=== PATIENT | male | born 1975 | race Caucasian/White ===

== ENCOUNTER 2020-01-04 15:04 | Outpatient (CLI) | payer OTHER, SELFPAY ==
--- NOTE | ~2020-01-04 | MR_ITS ---
EXAMINATION: MR shoulder LT wo con DATE: 01/04/2020 16:11 INDICATION: Left shoulder pain TECHNIQUE: Magnetic resonance imaging (MRI) of the left shoulder was performed without intravenous co ntrast. Sequences included axial PD-weighted FS FSE, coronal oblique PD-weighted FS FSE, coronal obli que T2-weighted FS FSE, sagittal PD-weighted FS FSE, and sagittal T1-weighted SE. COMPARISON: None. FINDINGS: Coracoacromial arch: The acromion undersurface is curved in morphology (type II). The coracoacromial ligament is normal. M oderate acromioclavicular osteoarthritis. Rotator cuff: Mild supraspinatus, infraspinatus and subscapularis tendinopathy without discrete tears. The teres mi nor tendon is normal. Normal rotator cuff muscle bulk and signal. Biceps tendon, glenoid labrum and glenohumeral cartilage: Long head of the biceps tendon is normal. The anteroinferior glenoid labrum is diminutive. There is a small para labral cyst arising from a tear at the 6:00 position of the inferior glenoid labrum. The tear appears to extend cephalad to the 10:30 position. There is partial thickness cartilage loss thro ughout the inferior half of the glenoid appears to involve greater than 50% the cartilage thickness i n places but without degenerative subchondral changes. Less severe partial thickness along the roni l head without chondral surface irregularity or degenerative subchondral changes. Fluid: Physiologic amount of fluid in the glenohumeral joint and biceps tendon sheath. No loose osteochondra l bodies. Very small amount of fluid in the subacromial/subdeltoid bursa consistent with minimal burs itis. Bones: Normal marrow signal with fracture or pathologic marrow replacing process. Mild cystic change along t he inferomedial aspect of the lesser tuberosity. IMPRESSION: 1. Mild left glenohumeral osteoarthritis with tear degeneration of the anteroinferior glenoid labrum and more discrete tear extending from the inferior to the posterior glenoid labrum. 2. Mild rotator cuff tendinopathy without discrete tear. 3. Moderate acromioclavicular osteoarthritis with minimal underlying subacromial/subdeltoid bursitis. Reviewed, dictated and finalized at location A. [employer] IMPRESSION: 1. Mild left glenohumeral osteoarthritis with tear degeneration of the anteroin ferior glenoid labrum and more discrete tear extending from the inferior to the posterior glenoid labrum. 2. Mild rotator cuff tendinopathy without discrete tear. 3. Moderate acromioclavicular osteoarthritis with minimal underlying subacromia l/subdeltoid bursitis.
== END 2020-01-04 15:05 ==
DX: M19.012 Primary osteoarthritis, left shoulder (principal)
CPT/HCPCS: 73221